=== PATIENT | male | born 1955 | race Caucasian/White ===

== ENCOUNTER 2022-03-07 11:42 | Observation (INO) ==
[2022-03-07] MEDS ORDERED: SODIUM CHLORIDE 0.9% 1,000 ML IV STA (12:09)
[2022-03-07] MEDS ORDERED: ONDANSETRON 4 MG/2 ML VIAL IV STA (12:09)
[2022-03-07 12:29] LABS: Basophils % 0.6 % (0.0-0.8); Eosinophils # 0.2 10*3/uL (0.0-0.87); Eosinophils % 2.7 % (0.00-10.9); Hematocrit 45.3 VOL% (42.0-52.0); Hemoglobin 15.3 GM/DL (14.0-18.0); Immature Granulocytes % 0.6 %; Immature Granulocytes Absolute 0.04 #; Lymphocytes # 1.6 10*3/uL (1.4-4.0); Lymphocytes % 23.9 % (21.2-54.2); Mean Corpuscular HGB Conc 33.8 GM/DL (32-36); Monocytes # 0.6 10*3/uL (0.11-0.8); Monocytes % 9.2 % (1.7-12.7); Platelet Count 219 T/CUMM (130-400); Red Blood Count 4.98 MC/CUMM (3.8-5.5); Red Cell Distribution Width 13.1 % (9.3-17.3); White Blood Count 6.8 T/CUMM (4-12)
[2022-03-07 12:47] LABS: Bilirubin,Urine Negative (Negative); Blood, Urine Negative (Negative); Glucose,Urine (UA) Negative (Negative); Ketones,Urine Negative (Negative); Nitrite,Urine Negative (Negative); Protein,Urine Negative (Negative); Urine Appearance Clear (Clear); Urine Color Yellow (Yellow); Urine pH 6.5 (4.5-8.0)
[2022-03-07 12:48] LABS: Mucus,Urine Occasional /LPF (Occasional); Urine Urobilinogen 0.2 eU/dL (<2.0)
[2022-03-07 12:49] LABS: PT Patient Result 11.1 SECS (10.1-12.1); Partial Thromboplastin Time 28.6 SECS (23.7-32.9)
[2022-03-07 12:50] LABS: Alanine Aminotransferase 25 U/L (16-61); Alkaline Phosphatase 127 U/L (45-117); Aspartate Amino Transferase 14 U/L (0-37); Blood Urea Nitrogen 19 MG/DL (7-18); Calcium 9.1 MG/DL (8.5-10.1); Carbon Dioxide 31 MMOL/L (21-32); Chloride 105 MMOL/L (98-107); Glucose 119 MG/DL (74-106); Osmolality,Calculated 279.5 MOS/KG (273-304); Potassium 4.2 MMOL/L (3.5-5.1); Sodium 139 MMOL/L (136-145); Total Protein 7.2 G/DL (6.4-8.2)
[2022-03-07 13:19] LABS: Barbiturates Screen,Urine Negative (Negative); Benzodiazepines Screen,Urine Negative (Negative); Cannabinoid Screen,Urine Negative (Negative); Opiate Screen,Urine Negative (Negative); Phencyclidine Screen,Urine Negative (Negative)
[2022-03-07] MEDS ORDERED: ACETAMINOPHEN 325 MG TABLET PO PRN (13:48)
[2022-03-07] MEDS ORDERED: ONDANSETRON 4 MG/2 ML VIAL IV PRN (13:48)
[2022-03-07] MEDS ORDERED: DOCUSATE SODIUM 100 MG CAPSULE PO PRN (13:48)
[2022-03-07] MEDS ORDERED: NITROGLYCERIN SL 0.4 MG TABLET SL PRN (13:57)
[2022-03-07] MEDS ORDERED: CLOPIDOGREL 75 MG TABLET PO SCH (14:00)
[2022-03-07] MEDS: ENOXAPARIN 40 MG/0.4 ML SYRINGE SUBCUT SCH (14:28)
[2022-03-07] MEDS ORDERED: GLUCAGON 1 MG VIAL IM PRN (16:07)
[2022-03-07] MEDS ORDERED: DEXTROSE 10% 250 ML BAG IV PRN (16:09)
[2022-03-07] MEDS: MAGNESIUM OXIDE 400 MG TABLET PO SCH (20:50)
[2022-03-07] MEDS: carvediloL 12.5 MG TABLET PO SCH (20:50)
[2022-03-07] MEDS ORDERED: ATORVASTATIN 80 MG TABLET PO SCH (21:00)
[2022-03-07] MEDS: CLOPIDOGREL 75 MG TABLET PO SCH (22:30)
[2022-03-08 05:42] LABS: Basophils % 0.5 % (0.0-0.8); Eosinophils # 0.2 10*3/uL (0.0-0.87); Eosinophils % 3.1 % (0.00-10.9); Hematocrit 40.1 VOL% (42.0-52.0); Hemoglobin 13.5 GM/DL (14.0-18.0); Immature Granulocytes % 0.7 %; Immature Granulocytes Absolute 0.04 #; Lymphocytes # 1.6 10*3/uL (1.4-4.0); Lymphocytes % 26.1 % (21.2-54.2); Mean Corpuscular HGB Conc 33.7 GM/DL (32-36); Mean Corpuscular Volume 91.3 FL (87-102); Mean Platelet Volume 9.1 FL (9.6-12.0); Monocytes # 0.6 10*3/uL (0.11-0.8); Monocytes % 9.1 % (1.7-12.7); Neutrophils % 60.5 % (38.7-73.9); Platelet Count 186 T/CUMM (130-400); Red Blood Count 4.39 MC/CUMM (3.8-5.5); Red Cell Distribution Width 12.9 % (9.3-17.3); White Blood Count 6.1 T/CUMM (4-12)
[2022-03-08 06:11] LABS: Calcium 8.6 MG/DL (8.5-10.1); Osmolality,Calculated 277.7 MOS/KG (273-304); Potassium 4.8 MMOL/L (3.5-5.1); Risk Ratio 2.74; Thyroid Stimulating Hormone 0.981 uIU/ml (0.358-3.74); VLDL Cholesterol 11.6 MG/DL
[2022-03-08] MEDS ORDERED: FUROSEMIDE 40 MG TABLET PO SCH (09:00)
[2022-03-08] MEDS ORDERED: INSULIN GLARGINE 100 UNIT/ML SUBCUT SCH (09:00)
[2022-03-08] MEDS ORDERED: LOSARTAN 25 MG TABLET PO SCH (09:00)
[2022-03-08] MEDS ORDERED: ASPIRIN EC 81 MG TABLET PO SCH (09:00)
[2022-03-08] MEDS ORDERED: POTASSIUM CHLORIDE 20 MEQ TABLET PO SCH (09:00)
[2022-03-08] MEDS ORDERED: ISOSORBIDE MONONITRATE 30 MG TABLET PO SCH (09:00)
[2022-03-08] MEDS ORDERED: PRASUGREL 10 MG TABLET PO SCH (09:00)
[2022-03-08] MEDS: CLOPIDOGREL 75 MG TABLET PO SCH (09:57)
[2022-03-08] MEDS: carvediloL 12.5 MG TABLET PO SCH (09:57)
[2022-03-08] MEDS: MAGNESIUM OXIDE 400 MG TABLET PO SCH (09:57)
[2022-03-08 14:23] VITALS: BP 134/86
[2022-03-08] MEDS: ENOXAPARIN 40 MG/0.4 ML SYRINGE SUBCUT SCH (15:04)
== END 2022-03-08 16:16 | disposition home or self-care (01) ==
LOC: N.ED 11:42 → N.EDINP 11:42 → SUATTDRO 13:43 → N.EDINP 15:20 → N.TELEN 15:32
PROVIDERS: ADMIT Hospitalist; ATTEND Internal Medicine